=== PATIENT | male | born 1990 | race Caucasian/White ===

== ENCOUNTER 2016-09-24 23:47 | Emergency (ER) | payer OTHER ==
[2016-09-25 00:03] VITALS: BP 150/93
[2016-09-25] MEDS ORDERED: SILVER SULFADIAZINE 50 APPL JAR TP ONE (00:25)
[2016-09-25] MEDS ORDERED: HYDROmorphone HCL 1 MG/ML DISP.SYRIN SC ONE (00:25)
[2016-09-25] MEDS ORDERED: HYDROmorphone HCL 1 MG/ML DISP.SYRIN ONE (00:30)
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
--- OUTSIDE RECORDS SUMMARY | 2016-09-25 00:48 | XMS REPORT | Continuity of Care Document ---
:1990 Author Organization [facility] [place] [address] Care Team Providers Name Role Phone Unavailable Primary Care Provider Unavailable Source Comments This disclosure is being made pursuant to the [employer] program and maynot contain all information available regarding this patient.[facility] Active Allergies and Adverse Reactions Not on File Current Medications Be aware that medications may not be up to date as of this document. Alwaysverify current medications with the patient. Not on file Active Problems Not on file Social History Tobacco Use Types Packs/Day Years Used Date Never Assessed Plan of Care Health Maintenance Due Date Last Done Comments Tetanus/Pertussis (1 - Tdap) 11/19/2007 Influenza Immunization (#1) 2015 Results from Last 3 Months Not on file
== END 2016-09-25 01:18 | disposition home or self-care (01) ==
LOC: ER 23:47
PROC: 2W2EX4Z Dressing of Right Hand using Bandage (ICD-10-PCS; principal; 2016-09-24)
DX: T23.251A Burn of second degree of right palm, initial encounter (principal); T31.0 Burns involving less than 10% of body surface; F41.8 Other specified anxiety disorders; W39.XXXA Discharge of firework, initial encounter; Y93.89 Activity, other specified; Y92.007 Garden or yard of unspecified non-institutional (private) residence as the place of occurrence of the external cause